=== PATIENT | female | born 1970 | race Caucasian/White ===

== ENCOUNTER 2020-03-12 02:34 | Emergency (ER) | payer BC, SELFPAY ==
[2020-03-12 02:37] VITALS: BP 148/91; PULSE 84; RESP 18; TEMP 36.6; O2SAT 99; BMI 32.3
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
--- NOTE | 2020-03-12 03:20 | DCINST.ED_ITS ---
ED Disposition - Plan for ED Patient: Instructions: ED Fx Colles Wrist No Redu Requ Prescriptions: Hydrocodone Bitart/Apap 5-325 [[place] 5MG-325MG] 1 tab PO Q4H PRN PRN 2 Days #20 tab PRN Reason: Pain Prescription Printed Referrals: Stanton Kapoor DO [Primary Care Provider] - González Neal DO [STAFF PHYSICIAN] - 3-5 Days
== END 2020-03-12 03:37 | disposition home or self-care (01) ==
LOC: ED 03:10
PROVIDERS: Emergency Provider Emergency Medicine; PCP Family Medicine
DX: S52.572A Other intraarticular fracture of lower end of left radius, initial encounter for closed fracture (principal); W51.XXXA Accidental striking against or bumped into by another person, initial encounter; Y93.9 Activity, unspecified; Y92.9 Unspecified place or not applicable; Y99.9 Unspecified external cause status; Z72.0 Tobacco use
CPT/HCPCS: 29125; 73110; 99283